=== PATIENT | male | born 1995 | race Caucasian/White ===

== ENCOUNTER 2020-06-08 08:44 | Emergency (ER) | payer OTHER, SELFPAY ==
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
[2020-06-08 08:55] VITALS: BP 155/100; PULSE 90; RESP 16; TEMP 36.4; O2SAT 98; BMI 27.8
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
[2020-06-08] MEDS: oxyCODONE HCl Immed Release 5 MG TABLET PO (10:42)
== END 2020-06-08 11:30 | disposition home or self-care (01) ==
PROVIDERS: Emergency Provider Physician Assistant
DX: S52.502A Unspecified fracture of the lower end of left radius, initial encounter for closed fracture (principal); S52.302A Unspecified fracture of shaft of left radius, initial encounter for closed fracture; M25.532 Pain in left wrist; V47.6XXA Car passenger injured in collision with fixed or stationary object in traffic accident, initial encounter; Y93.9 Activity, unspecified; Y92.410 Unspecified street and highway as the place of occurrence of the external cause
CPT/HCPCS: 73090; 73110; 73130; 99283

== ENCOUNTER 2020-06-16 08:15 | Day surgery (SDC) | payer OTHER, SELFPAY ==
[2020-06-15 12:36] VITALS: BMI 27.8
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
[2020-06-16] VITALS (10 sets, daily range): BP systolic 140–156; BP diastolic 90–105; PULSE 75–89; RESP 16–20; TEMP 36.3–36.6; O2SAT 94–99
--- NOTE | 2020-06-16 08:44 | FL_ITS ---
EXAMINATION: XR FLUOROSCOPY WITH IMAGES CLINICAL INFORMATION: ORIF of left distal radius fracture COMPARISON: None. TECHNIQUE: Fluoroscopy performed by Dr. Pascual Diaz. Fluoroscopy time: 1.6 minutes DAP: 0.04 mGycm2 Images: 10 FINDINGS: Fluoroscopic guidance was provided for ORIF of left distal radius fracture. Images demonstrate a volar plate plate and multiple screws transfixing the oblique distal radius fracture of theradial styloid intra-articular with the radiocarpal joint and distal radial shaft. There is improved anatomic alignment. FL/FL guidance in OR IMPRESSION: Fluoroscopic guidance for ORIF of left distal radius fracture.
[2020-06-16] MEDS: Lactated Ringers 1,000 ML 100 ML IVCONT (09:04)
[2020-06-16] MEDS: ceFAZolin Sodium/Dextrose,Iso 2 GM/50 ML PIGGYBACK IV (09:05)
--- NOTE | 2020-06-16 09:18 | MHC.SHP ---
Pre-Procedural Eval Section A The patient is an INPATIENT: No Changes since office visit: Yes Patient answered all questions; No Cold of Flu in the past 2 weeks, No New Medical Problems and No Changes in Medication The History & Physical has been completed within 30 days and I have reviewed it.: Yes Section B Chief Complaint: Wrist Fracture Allergies: Allergies Allergy/AdvReac Type Severity Reaction Status Date / Time No Known Allergies Allergy Verified 06/08/20 14:20 [No Known Allergies*] Plan Patient has been examined and remains a candidate for the planned procedure
--- NOTE | 2020-06-16 11:47 | PM.OP ---
Brief Operative Note Date of procedure: 06/16/20 Pre-op diagnosis: left radial shaft fracture left radial styloid fracture Post-op diagnosis: same Procedure: ORIF left radial shaft fx ORIF left radial styloid fx Implants: styker 11 hole radial locking plate Surgeon: Pascual Diaz MD Anesthesia: GLMA and regional [employer] Production Associate: Cory Lee Estimated blood loss (mL): 10 Tourniquet time (min): 100 IV fluids (mL): 800 Pathology: none sent Condition: stable Disposition: PACU
[2020-06-16] MEDS: ondansetron HCL 4 MG/2 ML VIAL IVPUSH (12:24)
[2020-06-16] MEDS: Ketorolac Tromethamine 15 MG/ML VIAL IVPUSH (12:26)
[2020-06-16] MEDS: Acetaminophen 325 MG TABLET 650 MG PO (12:42)
[2020-06-16] MEDS: oxyCODONE HCl Immed Release 5 MG TABLET PO (12:43)
--- NOTE | 2020-06-16 12:45 | OP_ITS ---
SURGEON: Pascual Diaz MD INDICATIONS: This is a 24-year-old gentleman with a complex left radial shaft fracture with intraarticular radial styloid fracture. He was consented to undergo ORIF. PREOPERATIVE DIAGNOSIS: POSTOPERATIVE DIAGNOSIS: PROCEDURE PERFORMED: ESTIMATED BLOOD LOSS: COMPLICATIONS: None. ANESTHESIA: LMA and regional. ASSISTANTS: SPECIMENS: PREOPERATIVE DIAGNOSES: 1. Left distal radius fracture. 2. Left distal radial styloid fracture. POSTOPERATIVE DIAGNOSES: 1. Left distal radius fracture. 2. Left distal radial styloid fracture. PROCEDURES PERFORMED: 1. ORIF, left radial shaft fracture. 2. ORIF, left radial styloid fracture. BLOOD LOSS: 10 mL. FLUIDS: 800. TOURNIQUET TIME: 100 minutes. PROCEDURE IN DETAIL: The patient was brought to the operating room, placed supine on the operative table, and prepped and draped in standard sterile fashion. Time-out was called to identify proper site, proper procedure, proper surgeon. IV antibiotics per weight were administered. I began by exsanguinating the limb and insufflating tourniquet to 250 mmHg. I then made an extended Roberth incision over the volar wrist. FCR was identified, and FCR fascia was incised and run proximally. FPL sheath was incised and swept aside. I carefully dissected this off proximally with the arterial feeding vessels diving into the volar musculature. Electrocautery was used to maintain hemostasis. I then incised the pronator quadratus and swept this off the distal radius. Immediately evident was a displaced fracture of the radial shaft. There was a volar spike angulating the volar. This extended down proximally approximately 10 cm from the radial articular surface. I dissected off the callus and the hematoma, and was able to obtain a near anatomic reduction of the radial shaft fracture. This fracture was interesting that it ended at the volar metadiaphysis and then completely separate was a longitudinal split of the radial styloid with a large intraarticular component. I dissected off the volar soft tissue from the radial styloid and retracted the brachioradialis and was able to place a sharp tenaculum between the shaft of the radius and the radial styloid and reduce the fracture both articularly at the shaft. I then, using standard AO lag technique, placed a 2.7 28 mm screw from radial to ulnar perpendicular to the radial styloid fracture line. I had excellent compression, and the screw head was buried and not proud. The tenaculum was removed and I was happy with the reduction both of the shaft fracture and the styloid fracture. Therefore, in order to address both fractures, I selected an 11 hole long distal radius plate. Biplanar fluoroscopy was used, and screws were placed proximally and distally to maintain the reduction. I had 6 cortices proximal to the fracture, and 3 distal locking screws and 1 shaft screw distal to the fracture. Biplanar fluoroscopy was used to confirm fracture reduction, and plate and screw position. Once I was happy with these, I irrigated copiously. The DRUJ was assessed and found to be stable. I then performed a layered closure with 3-0 Vicryl running barbed suture with skin glue and Steri-Strips. The patient was placed into a well-padded volar splint, extubated, and brought to recovery room in stable condition. There were no known complications. HYGIENE TEACHER: MIKEY Germain. GRAFT OR IMPLANTS: Garner distal radius locking plate, long, 11 hole. MD FABRICE Valenzuela/ELIAS / [id number]
== END 2020-06-16 14:15 | disposition home or self-care (01) ==
PROVIDERS: Visit Provider Orthopaedic Surgery
PROC: (CPT 25608; principal; 2020-06-16 09:50)
DX: S52.302A Unspecified fracture of shaft of left radius, initial encounter for closed fracture (principal); S52.512A Displaced fracture of left radial styloid process, initial encounter for closed fracture; S52.572A Other intraarticular fracture of lower end of left radius, initial encounter for closed fracture; J45.909 Unspecified asthma, uncomplicated; F12.90 Cannabis use, unspecified, uncomplicated; V47.5XXA Car driver injured in collision with fixed or stationary object in traffic accident, initial encounter; Y93.89 Activity, other specified; Y92.410 Unspecified street and highway as the place of occurrence of the external cause; Y99.0 Civilian activity done for income or pay
CPT/HCPCS: 25608; 25515; C1713; J0690; J1100; J1885; J2250; J2405; J3010

== ENCOUNTER → 2020-07-02 13:06 | Outpatient (BNVA) | payer OTHER, SELFPAY | PROVIDERS: Visit Provider Physician Assistant | DX: S52.302D Unspecified fracture of shaft of left radius, subsequent encounter for closed fracture with routine healing (principal) | CPT/HCPCS: 29075; 99212 ==

== ENCOUNTER 2020-07-31 08:36 | Outpatient (REF) | payer OTHER, SELFPAY ==
--- NOTE | 2020-07-31 10:57 | XR_ITS ---
EXAMINATION: XR FOREARM, LEFT XR WRIST, LEFT CLINICAL INFORMATION: Follow up fracture distal radius. COMPARISON: Left forearm 06/08/2020. TECHNIQUE: 2 views left wrist and 2 views left forearm. FINDINGS: LEFT FOREARM: Previously visualized oblique fracture distal radius has been stabilized with a ventral plate and screws. The fracture almost appears healed with fracture line not seen. The rest of the radius and the ulna appears unremarkable. LEFT WRIST: There is no visible acute fracture, dislocation. The scapholunate joint is maintained. No acute fracture seen. Again visualized is a healed distal radial fracture with volar metallic plate and screws. There is mild osteopenia of the carpal bones. XR/XR wrist LT 2V IMPRESSION: Healed oblique fracture. Distal radius fracture stabilized with volar metallic plate and screws. No other fracture seen in the left forearm or left wrist. There is mild osteopenia in the left wrist.
--- NOTE | 2020-07-31 10:57 | XR_ITS ---
EXAMINATION: XR FOREARM, LEFT XR WRIST, LEFT CLINICAL INFORMATION: Follow up fracture distal radius. COMPARISON: Left forearm 06/08/2020. TECHNIQUE: 2 views left wrist and 2 views left forearm. FINDINGS: LEFT FOREARM: Previously visualized oblique fracture distal radius has been stabilized with a ventral plate and screws. The fracture almost appears healed with fracture line not seen. The rest of the radius and the ulna appears unremarkable. LEFT WRIST: There is no visible acute fracture, dislocation. The scapholunate joint is maintained. No acute fracture seen. Again visualized is a healed distal radial fracture with volar metallic plate and screws. There is mild osteopenia of the carpal bones. XR/XR forearm LT 2V IMPRESSION: Healed oblique fracture. Distal radius fracture stabilized with volar metallic plate and screws. No other fracture seen in the left forearm or left wrist. There is mild osteopenia in the left wrist.
== END 2020-07-31 08:37 | disposition home or self-care (01) ==
LOC: HO.HOSX 08:36
PROVIDERS: Visit Provider Orthopaedic Surgery
DX: S52.502D Unspecified fracture of the lower end of left radius, subsequent encounter for closed fracture with routine healing (principal)
CPT/HCPCS: 73090; 73100; 99212

== ENCOUNTER → 2020-08-17 13:49 | Outpatient (BNVA) | payer OTHER, SELFPAY | PROVIDERS: Visit Provider Orthopaedic Surgery | DX: S52.302D Unspecified fracture of shaft of left radius, subsequent encounter for closed fracture with routine healing (principal) | CPT/HCPCS: 99212 ==

== ENCOUNTER 2020-09-03 09:20 | Outpatient (REF) | payer OTHER, SELFPAY ==
--- NOTE | 2020-09-03 11:41 | XR_ITS ---
EXAMINATION: XR FOREARM, LEFT CLINICAL INFORMATION: Fracture. COMPARISON: Most recent left forearm radiographs dated 07/31/2020 TECHNIQUE: AP and lateral views of the left forearm were obtained. FINDINGS: Distal radial volar stabilization plate with fixation screws. No acute hardware fracture. No perihardware lucency to suggest loosening or infection. Redemonstration of a radial fracture in unchanged anatomic alignment. XR/XR forearm LT 2V IMPRESSION: Radial ORIF without evidence of complication. Distal radial fracture, unchanged.
== END 2020-09-03 09:21 | disposition home or self-care (01) ==
LOC: HO.HOSX 09:20
PROVIDERS: Visit Provider Orthopaedic Surgery
DX: S52.92XD Unspecified fracture of left forearm, subsequent encounter for closed fracture with routine healing (principal)
CPT/HCPCS: 73090; 99212

== ENCOUNTER 2020-09-07 10:30 | Outpatient (RCR) | payer OTHER, SELFPAY | END 2020-11-05 08:25 | disposition other institution (70) | LOC: HO.OT 10:30 | PROVIDERS: Visit Provider Orthopaedic Surgery | DX: S52.509D Unspecified fracture of the lower end of unspecified radius, subsequent encounter for closed fracture with routine healing (principal) | CPT/HCPCS: 97110; 97165; 97530 ==

== ENCOUNTER 2021-07-23 21:31 | Emergency (ER) | payer SELFPAY ==
--- NOTE | ~2021-07-23 | CT_ITS ---
EXAMINATION: CT ABDOMEN AND PELVIS WITH CONTRAST CLINICAL INFORMATION: Right lower quadrant pain COMPARISON: None TECHNIQUE: Multidetector volumetric images were obtained from the superior aspect of the liver through the pubic symphysis following administration 85 mL of Omnipaque 350 intravenous contrast. Sagittal and coronal reformatted images were obtained on the technologist's workstation. Oral contrast: No This CT examination was performed using dose optimization techniques as appropriate, variously including the following: *Automated exposure control *Adjustment of mA and/or kV according to patient size (this includes techniques or standardized protocols for targeted exams where dose is matched to indication/reason for exam; i.e. extremities or head) *Use of iterative reconstruction technique DLP: 595 mGy-cm FINDINGS: LUNG BASES: The visualized lung bases are unremarkable. LIVER, GALLBLADDER, AND BILIARY TREE: The liver is normal in size, shape, and attenuation. No focal hepatic lesion or biliary ductal dilatation is present. The gallbladder is unremarkable with no evidence of radiopaque gallstones, gallbladder wall thickening, or obvious pericholecystic inflammatory changes. PANCREAS: Unremarkable. SPLEEN: Unremarkable. ADRENAL GLANDS: Unremarkable. KIDNEYS AND URETERS: There is a 3 mm calculus in the proximal right ureter with mild hydronephrosis and perinephric stranding. Right nephrogram appears slightly delayed. No left-sided hydronephrosis or obstructing calculus. BLADDER: Unremarkable. GASTROINTESTINAL TRACT: The small and large bowel are unremarkable. The appendix is unremarkable. No free fluid or free air is seen. ABDOMINAL WALL: Fat-containing inguinal hernias are noted, left larger than right. LYMPH NODES: Normal. VASCULAR: Unremarkable. PELVIC VISCERA: Unremarkable. OSSEOUS STRUCTURES: Unremarkable. CT/CT abdomen pelvis w con IMPRESSION: Proximal right ureteral calculus measuring 3 mm with mild hydronephrosis. Fleischner guidelines were followed.
[2021-07-23 21:40] VITALS: BP 137/106; PULSE 96; RESP 18; TEMP 36.9; O2SAT 97; BMI 28.5
[2021-07-23 22:01] LABS: Basophils Percent Auto 0.2 % (0-2); Eosinophils Absolute Auto 0.1 X10*3/uL (0.0-0.4); Eosinophils Percent Auto 0.4 % (0-4); Hematocrit 46.6 % (42.0-52.0); Hemoglobin 15.8 g/dl (14.0-18.0); Imm Gran Abs Auto 0.06 X10*3/uL (0.00-0.03); Imm Gran Pct Auto 0.3 % (0.0-0.4); Lymphocytes Absolute Auto 1.4 X10*3/uL (1.2-4.9); Lymphocytes Percent Auto 7.5 % (20-40); MANUAL DIFF FLAG NO; Mean Corpuscular HGB Conc 33.9 g/dl (31.0-36.0); Mean Corpuscular Hemoglobin 31.2 pg (27.0-33.0); Mean Corpuscular Volume 91.9 fL (80.0-98.0); Mean Platelet Volume 9.2 fL (9.4-12.4); Monocytes Absolute Auto 0.8 X10*3/uL (0.1-1.2); Monocytes Percent Auto 4.5 % (2-11); Neutrophils Absolute Auto 15.8 x10*3/uL (2.0-8.3); Neutrophils Percent Auto 87.1 % (45-73); Platelet Count 325 X10*3/uL (160-400); Red Blood Count 5.07 X10*6/uL (4.60-5.80); Red Cell Distribution Width 11.9 % (11.0-16.0); White Blood Count 18.2 X10*3/uL (4.8-10.8)
[2021-07-23 22:02] LABS: Appearance Urine HAZY; Color Urine YELLOW; Glucose Urine UA NEG (NEG); Leukocyte Esterase Urine NEG (NEG); Nitrite Urine NEG (NEG); UACC Culture Trigger NO; Urine Blood 3+ (NEG); Urine Ketones NEG (NEG); Urine Protein TRACE MG/DL (NEG-TRACE)
[2021-07-23 22:14] LABS: Bacteria Urine 2+ /LPF; Calcium Oxalate Crystals Urine 3+ /LPF; Mucus Urine 1+ /LPF; Renal Epithelial Cells Urine TRACE /LPF; Squamous Epithelial Cell Urine TRACE /LPF; Tyrosine Crystal Urine TRACE /LPF; WBC Urine 0-2 /HPF (0-4)
[2021-07-23 22:24] LABS: Anion Gap 13 (12-20); Blood Urea Nitrogen 12 mg/dL (9-16); Calcium 10.1 mg/dL (8.4-10.2); Carbon Dioxide 27 mmol/L (22-29); Chloride 107 mmol/L (96-108); Creatinine Clr Calc Pharmacy 122.9; Estimated Glomerular Filt Rate > 60; Glucose Random 139 mg/dL (60-115); Potassium 4.3 mmol/L (3.3-5.1); Sodium 143 mmol/L (135-145)
[2021-07-24 00:25] VITALS: BP 173/100; PULSE 89; RESP 14; TEMP 36.6; O2SAT 99
--- NOTE | 2021-07-24 00:56 | ED_ITS ---
HPI - Abdominal Pain General Chief Complaint: Abdominal Pain Stated Complaint: Right lower abdominal pain Time Seen by Provider: 07/24/21 00:36 Source: patient Mode of arrival: ambulatory History of Present Illness HPI narrative: 25-year-old male without significant past medical history who presents with awakening from sleep with right lower quadrant pain that he states is sharp in nature and felt like somebody was stabbing him without radiation. Although this was associated with nausea he denies any vomiting, diarrhea, fever but did have some chills. Patient states that the pain subsided and then recurred about 30 minutes prior to being brought back to the main ED and again has somewhat subsided. He denies any history of renal colic. Patient denies any COVID-19 vaccination. Related Data Previous Rx's Medication Instructions Recorded acetaminophen 300 mg-codeine 30 mg 1 tab PO Q8H PRN 3 Days #9 tab 06/08/20 tablet naproxen 500 mg tablet 500 mg PO BID PRN 10 Days #20 tab 06/08/20 oxycodone 10 mg tablet,crush 10 mg PO BID 3 Days #6 tab 06/16/20 resistant,extended release 12 hr (OxyContin) oxycodone-acetaminophen 5 mg-325 1 tab PO Q4H PRN 7 Days #40 tab 06/16/20 mg tablet (Percocet) ciprofloxacin HCl 500 mg tablet 500 mg PO Q12H 7 Days #14 tab 07/24/21 (Cipro) ketorolac 10 mg tablet 10 mg PO Q6H PRN 5 Days tab 07/24/21 ketorolac 10 mg tablet 10 mg PO Q6H PRN 5 Days #20 tab 07/24/21 tamsulosin 0.4 mg capsule (Flomax) 0.4 mg PO BEDTIME #4 cap 07/24/21 Allergies Allergy/AdvReac Type Severity Reaction Status Date / Time No Known Allergies Allergy Verified 09/03/20 11:20 [No Known Allergies*] Review of Systems Review of Systems Pertinent positives and negatives as stated in HPI 10 point review of systems is otherwise negative. Physical Exam Vital Signs: Vital Signs: Last Vital Signs Temp 97.8 F 07/24/21 02:52 Pulse 81 07/24/21 02:52 Resp 13 07/24/21 02:52 BP 134/95 H 07/24/21 02:52 Pulse Ox 98 07/24/21 02:52 BMI result Body Mass Index 28.5 VITAL SIGNS: Reviewed. GENERAL: Well developed, well nourished, in no acute distress. HEAD: Normocephalic/atraumatic EYES: PERRLA, EOMI OROPHARYNX: no oral lesions noted, posterior pharynx clear LUNGS: Normal breath sounds. No adventitious sounds or accessory muscle use. SpO2<99> CARDIOVASCULAR: Regular rate and rhythm without noted murmurs ABDOMEN: Soft, mild tenderness at right lower quadrant, McBurney's negative, Rovsing's negative, non-distended with bowel sounds. NEUROLOGIC: Alert and oriented x 4. Course Course Course Narrative: 25-year-old male with history and clinical presentation suggestive of possible renal colic, appendicitis but doubt UTI or pyelonephritis. Of note, patient complaints years of having multiple loose stools every day without blood, 3 to 4 times a day. Review of all investigations significant for proximal ureterolithiasis and pain medication was provided with complete resolution of discomfort. All results and findings discussed with him at bedside he was discharged with a referral see Urology as well as medications to facilitate the passage of the stone. MDM - Abdominal Pain Lab Data Result diagrams: 07/23/21 21:56 07/23/21 21:56 Labs: Lab Results 07/23/21 07/23/21 12 Range/Units 21:56 21:56 21:56 WBC 18.2 H (4.8-10.8) X10*3/uL RBC 5.07 (4.60-5.80) X10*6/uL Hgb 15.8 (14.0-18.0) g/dl Hct 46.6 (42.0-52.0) % MCV 91.9 (80.0-98.0) fL MCH 31.2 (27.0-33.0) pg MCHC 33.9 (31.0-36.0) g/dl RDW 11.9 (11.0-16.0) % Plt Count 325 (160-400) X10*3/uL MPV 9.2 L (9.4-12.4) fL Immature Gran % (Auto) 0.3 (0.0-0.4) % Neut % (Auto) 87.1 H (45-73) % Lymph % (Auto) 7.5 L (20-40) % Griggs % (Auto) 4.5 (2-11) % Eos % (Auto) 0.4 (0-4) % Baso % (Auto) 0.2 (0-2) % Lymph # (Auto) 1.4 (1.2-4.9) X10*3/uL Griggs # (Auto) 0.8 (0.1-1.2) X10*3/uL Eos # (Auto) 0.1 (0.0-0.4) X10*3/uL Baso # (Auto) 0.0 (0.0-0.2) X10*3/uL Abs Immat Gran (auto) 0.06 H (0.00-0.03) X10*3/uL Absolute Neuts (auto) 15.8 H (2.0-8.3) x10*3/uL Absolute Nucleated RBC 0.000 (0.0-0.012) X10*3/uL Nucleated RBC % (auto) 0.0 (0.0-0.2) /100WBC PT (9.9-13.0) SEC INR (0.9-1.1) Sodium 143 (135-145) mmol/L Potassium 4.3 (3.3-5.1) mmol/L Chloride 107 (96-108) mmol/L Carbon Dioxide 27 (22-29) mmol/L Anion Gap 13 (12-20) BUN 12 (9-16) mg/dL Creatinine 1.10 (0.5-1.4) mg/dL Estim Creat Clear Calc 122.9 Estimated GFR > 60 Random Glucose 139 H (60-115) mg/dL Lactic Acid (0.5-2.0) mmol/L Calcium 10.1 (8.4-10.2) mg/dL Urine Color YELLOW Urine Appearance HAZY Urine pH 6.0 (5.0-8.0) Ur Specific [place] 1.020 (1.005-1.025) Urine Protein TRACE (NEG-TRACE) MG/DL Urine Glucose (UA) NEG (NEG) MG/DL Urine Ketones NEG (NEG) MG/DL Urine Blood 3+ H (NEG) Urine Nitrite NEG (NEG) Ur Leukocyte Esterase NEG (NEG) Urine RBC 15-29 H (0) /HPF Urine WBC 0-2 (0-4) /HPF Ur Squamous Epith Cells TRACE /LPF Ur Renal Epithelial Cell TRACE /LPF Calcium Oxalate Crystal 3+ /LPF Tyrosine Crystals TRACE /LPF Urine Bacteria 2+ /LPF Urine Mucus 1+ /LPF COVID-19 ([facility]IM) (Negative) COVID-19 Clin Com 07/24/21 07/24/21 07/24/21 Range/Units 01:59 02:08 02:08 WBC (4.8-10.8) X10*3/uL RBC (4.60-5.80) X10*6/uL Hgb (14.0-18.0) g/dl Hct (42.0-52.0) % MCV (80.0-98.0) fL MCH (27.0-33.0) pg MCHC (31.0-36.0) g/dl RDW (11.0-16.0) % Plt Count (160-400) X10*3/uL MPV (9.4-12.4) fL Immature Gran % (Auto) (0.0-0.4) % Neut % (Auto) (45-73) % Lymph % (Auto) (20-40) % Griggs % (Auto) (2-11) % Eos % (Auto) (0-4) % Baso % (Auto) (0-2) % Lymph # (Auto) (1.2-4.9) X10*3/uL Gr[place]gs # (Auto) (0.1-1.2) X10*3/uL Eos # (Auto) (0.0-0.4) X10*3/uL Baso # (Auto) (0.0-0.2) X10*3/uL Abs Immat Gran (auto) (0.00-0.03) X10*3/uL Absolute Neuts (auto) (2.0-8.3) x10*3/uL Absolute Nucleated RBC (0.0-0.012) X10*3/uL Nucleated RBC % (auto) (0.0-0.2) /100WBC PT 12.6 (9.9-13.0) SEC INR 1.1 (0.9-1.1) Sodium (135-145) mmol/L Potassium (3.3-5.1) mmol/L Chloride (96-108) mmol/L Carbon Dioxide (22-29) mmol/L Anion Gap (12-20) BUN (9-16) mg/dL Creatinine (0.5-1.4) mg/dL Estim Creat Clear Calc Estimated GFR Random Glucose (60-115) mg/dL Lactic Acid 0.9 (0.5-2.0) mmol/L Calcium (8.4-10.2) mg/dL Urine Color Urine Appearance Urine pH (5.0-8.0) Ur Specific [place] (1.005-1.025) Urine Protein (NEG-TRACE) MG/DL Urine Glucose (UA) (NEG) MG/DL Urine Ketones (NEG) MG/DL Urine Blood (NEG) Urine Nitrite (NEG) Ur Leukocyte Esterase (NEG) Urine RBC (0) /HPF Urine WBC (0-4) /HPF Ur Squamous Epith Cells /LPF Ur Renal Epithelial Cell /LPF Calcium Oxalate Crystal /LPF Tyrosine Crystals /LPF Urine Bacteria /LPF Urine Mucus /LPF COVID-19 (JIM) Negative (Negative) COVID-19 Clin Com See Note 07/24/21 Range/Units 02:12 WBC (4.8-10.8) X10*3/uL RBC (4.60-5.80) X10*6/uL Hgb (14.0-18.0) g/dl Hct (42.0-52.0) % MCV (80.0-98.0) fL MCH (27.0-33.0) pg MCHC (31.0-36.0) g/dl RDW (11.0-16.0) % Plt Count (160-400) X10*3/uL MPV (9.4-12.4) fL Immature Gran % (Auto) (0.0-0.4) % Neut % (Auto) (45-73) % Lymph % (Auto) (20-40) % Gr[place]gs % (Auto) (2-11) % Eos % (Auto) (0-4) % Baso % (Auto) (0-2) % Lymph # (Auto) (1.2-4.9) X10*3/uL [place]gs # (Auto) (0.1-1.2) X10*3/uL Eos # (Auto) (0.0-0.4) X10*3/uL Baso # (Auto) (0.0-0.2) X10*3/uL Abs Immat Gran (auto) (0.00-0.03) X10*3/uL Absolute Neuts (auto) (2.0-8.3) x10*3/uL Absolute Nucleated RBC (0.0-0.012) X10*3/uL Nucleated RBC % (auto) (0.0-0.2) /100WBC PT (9.9-13.0) SEC INR (0.9-1.1) Sodium (135-145) mmol/L Potassium (3.3-5.1) mmol/L Chloride (96-108) mmol/L Carbon Dioxide (22-29) mmol/L Anion Gap (12-20) BUN (9-16) mg/dL Creatinine (0.5-1.4) mg/dL Estim Creat Clear Calc Estimated GFR Random Glucose (60-115) mg/dL Lactic Acid (0.5-2.0) mmol/L Calcium (8.4-10.2) mg/dL Urine Color YELLOW Urine Appearance CLEAR Urine pH 6.0 (5.0-8.0) Ur Specific [place] <= 1.005 (1.005-1.025) Urine Protein NEG (NEG-TRACE) MG/DL Urine Glucose (UA) NEG (NEG) MG/DL Urine Ketones NEG (NEG) MG/DL Urine Blood 2+ H (NEG) Urine Nitrite NEG (NEG) Ur Leukocyte Esterase NEG (NEG) Urine RBC 5-9 H (0) /HPF Urine WBC 0-2 (0-4) /HPF Ur Squamous Epith Cells TRACE /LPF Ur Renal Epithelial Cell /LPF Calcium Oxalate Crystal /LPF Tyrosine Crystals /LPF Urine Bacteria TRACE /LPF Urine Mucus /LPF COVID-19 ([facility]IM) (Negative) COVID-19 Clin Com Discharge Plan Discharge Clinical Impression: Renal colic, Ureterolithiasis Patient Disposition: Home, Self-Care Instructions: Renal Colic (ED), Ureteral Stones (ED) Additional Instructions: You have been provided with a referral to see Urology regarding her stone. Tylenol 1000 mg, orally, every 6 hours as needed for pain control. Do not exceed 4000 mg within 24 hours. Continue to drink plenty of fluids, especially water, avoid all caffeinated/carbonated beverages. Return to the ER for acute worsening of symptoms. Prescriptions: New tamsulosin [Flomax] 0.4 mg capsule 0.4 mg PO BEDTIME Qty: 4 RF: 0 ketorolac 10 mg tablet 10 mg PO Q6H PRN (Reason: pain) 5 Days RF: 0 ketorolac 10 mg tablet 10 mg PO Q6H PRN (Reason: pain) 5 Days Qty: 20 RF: 0 ciprofloxacin HCl [Cipro] 500 mg tablet 500 mg PO Q12H 7 Days Qty: 14 RF: 0 No Action acetaminophen-codeine 300-30 mg tablet 1 tab PO Q8H PRN (Reason: pain) 3 Days Qty: 9 RF: 0 naproxen 500 mg tablet 500 mg PO BID PRN (Reason: pain) 10 Days Qty: 20 RF: 0 oxycodone-acetaminophen [Percocet] 5-325 mg tablet 1 tab PO Q4H PRN (Reason: pain) 7 Days Qty: 40 RF: 0 oxycodone [OxyContin] 10 mg tablet,oral only,ext.rel.12 hr 10 mg PO BID 3 Days Qty: 6 RF: 0 Referrals: Star Owens MD [Physician] - 2 days (Renal colic, rt) [facility] Past Medical History Source: nursing notes reviewed Medical History Asthma Fracture, radius, distal No known health problems Surgical History History of surgery on arm Family History Family History Mother No problems noted. Father No problems noted. Social History Social History Alcohol intake: never Patient Tobacco Use Status: Never used Tobacco Second Hand Smoke Exposure: No Use of substances other than those prescribed or required for medical reasons: Yes Substance Use Type: Marijuana Advance Directives: No Current occupation: [employer] - Left Handed
[2021-07-24] MEDS: Ketorolac Tromethamine 30 MG/ML VIAL 15 MG IVPUSH (01:12)
[2021-07-24] MEDS: iohexoL 350 MG/ML 100 ML INFUS..BTL 85 ML IV (01:18)
[2021-07-24 01:26] VITALS: RESP 15
[2021-07-24] MEDS: fentaNYL citrate/PF 100 MCG/2 ML VIAL 25 MCG IVPUSH (01:26)
[2021-07-24 02:26] LABS: INTERNATIONAL NORM RATIO 1.1 (0.9-1.1); Prothrombin Time 12.6 SEC (9.9-13.0)
[2021-07-24 02:27] LABS: Lactic Acid 0.9 mmol/L (0.5-2.0)
[2021-07-24 02:27] LABS: Appearance Urine CLEAR; Color Urine YELLOW; Glucose Urine UA NEG (NEG); Leukocyte Esterase Urine NEG (NEG); Nitrite Urine NEG (NEG); Specific Gravity - Urine <= 1.005 (1.005-1.025); UACC Culture Trigger NO; Urine Blood 2+ (NEG); Urine Ketones NEG (NEG); Urine Protein NEG (NEG-TRACE)
[2021-07-24 02:33] LABS: Bacteria Urine TRACE /LPF; Squamous Epithelial Cell Urine TRACE /LPF; WBC Urine 0-2 /HPF (0-4)
[2021-07-24 02:36] LABS: COVID-19 Test Negative (Negative); IDNOW Serial# 9DD0AD1C
[2021-07-24 02:52] VITALS: BP 134/95; PULSE 81; RESP 13; TEMP 36.6; O2SAT 98
[2021-07-24] MEDS: Tamsulosin HCL 0.4 MG CAPSULE PO (03:11)
[2021-07-24] MEDS: levoFLOXacin 500 MG TABLET PO (03:12)
== END 2021-07-24 03:13 | disposition home or self-care (01) ==
PROVIDERS: Emergency Provider Student in an Organized Health Care Education/Training Program
DX: N13.2 Hydronephrosis with renal and ureteral calculous obstruction (principal); Z20.822 Contact with and (suspected) exposure to COVID-19
CPT/HCPCS: 36415; 74177; 80048; 81001; 83605; 85025; 85610; 87040; 87635; 96374; 96375; 99284; 99285; J1885; J3010; Q9967